=== PATIENT | female | born 1935 | race Caucasian/White ===

== ENCOUNTER 2017-04-06 11:55 | Emergency (ER) | payer OTHER ==
[~2017-04-06] VITALS: Ht 170.2 cm; Wt 75.0 kg
[~2017-04-06 11:55] MED LIST: AMLO5TAB22 PO; BISA10R; CHOL1CAP6 PO; COUM1TAB PO; FLEEENE3 RE; HYDR12.56 PO; MILKSUS5; NITR0.4S SL; OMEG600C2 PO; PERC10TA27 PO; RANI150 PO; STOO100C PO; SYNT100T PO; VALI10TA PO; VITA400C70 PO
[2017-04-06 11:59] VITALS: BP 121/73; PULSE 91; RESP 18; TEMP 97.7; O2SAT 98
--- NOTE | 2017-04-06 13:40 | PD ---
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 Symptoms started this morning while making breakfast. She reports tightness in the left side of her chest/back region which is constant, shortness of breath which is worse with exertion. Denies nausea or vomiting, fevers or chills, abdominal pain, cough or congestion, leg swelling. She reports that she has not been able to check her INR in 3 weeks, her INR outpatient order was and she was unable to get it checked yesterday. Primary care physician is Dr. Swenson, container filler is Dr. Jimenez. No other complaints. PFSH Past Medical History Hx Anticoagulant Therapy: Yes (COUMADIN) Heart Rhythm Problems: No Cancer: No Cardiac Catheterization: Yes Cardiovascular Problems: Yes (STENT ) High Cholesterol: No Congestive Heart Failure: No Cerebrovascular Accident: Yes Diabetes: No Endocrine: Yes Gastrointestinal Disorders: Yes (reflux occ esophageal spasms after eating drymeats etc) Genitourinary: Yes (hx of kidney infections) Hepatitis: No Hiatal Hernia: No Hypertension: Yes Immune Disorder: Yes (psoriasias) Musculoskeletal: Yes (back problems arthritis) Neurologic: No Psychiatric: No Reproductive: No Respiratory: Yes (BILATERAL PE) Thyroid Disease: Yes Menopausal: Yes Dilation and Curettage (D&C): Yes Past Surgical History AICD: No Body Medical Devices: cardiac stent Cardiac Surgery: Yes (cardiac stent placement) Coronary Artery Bypass Graft: No Coronary Stent: Yes Eye Surgery: Yes (francis cataract removal) Joint Replacement: No Oral Surgery: Yes (t and a) Pacemaker: No Tonsillectomy: Yes Social History Alcohol Use: No Tobacco Use: No Substance Use: No Allergies-Medications (Allergen,Severity, Reaction): Coded Allergies: Lisinopril (Unverified Allergy, Severe, Anaphylaxis, 07/02/14) Nitrofurantoin (Verified Allergy, Unknown, 04/06/17) Uncoded Allergies: PAPER TAPE (Allergy, Mild, REDNESS, BUMPS, 06/26/14) Reported Meds & Prescriptions Reported Meds & Active Scripts Active Valium (Diazepam) 10 Mg Tab 10 Mg PO HS PRN Amlodipine Besylate 5 Mg Tab 1 Tab PO DAILY hold if SBP<110 Reported Percocet 10/325 (Oxycodone/Acetaminophen) Oxycodone 10/325 Acetaminophen Tab 1 Tab PO Q4H Milk of Magnesia 400 mg/5Ml (Magnesium Hydroxide) 1 Diamond Diamond Fleet Enema (Sodium Phosphates) Lashonda 1 RE Dulcolax 10 Mg Supp (Bisacodyl) 10 Mg Supp 10 Mg .XX Coumadin 1 mg (Warfarin Sodium) Warfarin Sodium 1 mg Tab 1 Tab PO DAILY goal for INR 1.8-2.2; hold Coumadin for INR greater than 2.2; INR daily call Carmen GAYTAN or Ruby RN [phone] Colace (Docusate Sodium) 100 Mg Cap 100 Mg PO DAILY Fish Oil ([place]-3 Fatty Acids) 600 Mg Cap 600 Mg PO BID Hctz (Hydrochlorothiazide) 12.5 Mg Cap 12.5 Mg PO BID Synthroid (Levothyroxine Sodium) 100 Mcg Tab 100 Mcg PO DAILY Nitrostat (Nitroglycerin) 0.4 Mg Subl 0.4 Mg SL PRN 1 TAB SL EVERY 5 MINS X 3 PRN CHEST PAIN Vitamin D-3 (Cholecalciferol) 1,000 Unit Tab 3,000 Unit PO DAILY Vitamin E-400 (Vitamin E) 400 Unit Cap 400 Unit PO DAILY Zantac 150 Mg Tab (Ranitidine HCl) 150 Mg Tab 150 Mg PO BID Review of Systems Except as stated in HPI: all other systems reviewed are Neg Physical Exam Narrative GENERAL: Well-developed well-nourished female in no acute distress SKIN: Warm and dry. HEAD: Atraumatic. Normocephalic. EYES: Pupils equal and round. No scleral icterus. No injection or drainage. ENT: No nasal bleeding or discharge. Mucous membranes pink and moist. NECK: Trachea midline. No JVD. CARDIOVASCULAR: Regular rate and rhythm. No murmur appreciated. RESPIRATORY: No accessory muscle use. Clear to auscultation. Breath sounds equal bilaterally. GASTROINTESTINAL: Abdomen soft, non-tender, nondistended. Hepatic and splenic margins not palpable. MUSCULOSKELETAL: No obvious deformities. No edema. NEUROLOGICAL: Awake and alert. No obvious cranial nerve deficits. Motor grossly within normal limits. Normal speech. PSYCHIATRIC: Appropriate mood and affect; insight and judgment normal. Data Data Last Documented VS Vital Signs Date Time Temp Pulse Resp B/P Pulse Ox O2 Delivery O2 Flow Rate FiO2 04/06/17 15:45 Room Air 04/06/17 11:59 97.7 91 18 121/73 98 Orders Electrocardiogram (04/06/17 13:37) Basic Metabolic Panel (Bmp) (04/06/17 13:37) Ckmb (Isoenzyme) Profile (04/06/17 13:37) Complete Blood Count With Diff (04/06/17 13:37) Magnesium (Mg) (04/06/17 13:37) Prothrombin Time / Inr (Pt) (04/06/17 13:37) Act Partial Throm Time (Ptt) (04/06/17 13:37) Troponin I (04/06/17 13:37) Chest, Single Ap (04/06/17 13:37) Ecg Monitoring (04/06/17 13:37) Bilateral Bp Monitoring (04/06/17 13:37) Iv Access Insert/Monitor (04/06/17 13:37) Oximetry (04/06/17 13:37) Oxygen Administration (04/06/17 13:37) Sodium Chloride 0.9% Flush (Ns Flush) (04/06/17 13:45) Ct Pulmonary Angiogram (04/06/17 13:37) Potassium Chloride (Kcl) (04/06/17 15:15) Iohexol 350 Inj (Omnipaque 350 Inj) (04/06/17 16:37) Labs Laboratory Tests Test 04/06/17 14:05 White Blood Count 7.8 TH/MM3 Red Blood Count 5.91 MIL/MM3 Hemoglobin 16.3 GM/DL Hematocrit 49.2 % Mean Corpuscular Volume 83.2 FL Mean Corpuscular Hemoglobin 27.6 PG Mean Corpuscular Hemoglobin 33.2 % Concent Red Cell Distribution Width 16.3 % Platelet Count 251 TH/MM3 Mean Platelet Volume 7.5 FL Neutrophils (%) (Auto) 57.7 % Lymphocytes (%) (Auto) 30.7 % Monocytes (%) (Auto) 8.7 % Eosinophils (%) (Auto) 2.3 % Basophils (%) (Auto) 0.6 % Neutrophils # (Auto) 4.5 TH/MM3 Lymphocytes # (Auto) 2.4 TH/MM3 Monocytes # (Auto) 0.7 TH/MM3 Eosinophils # (Auto) 0.2 TH/MM3 Basophils # (Auto) 0.0 TH/MM3 CBC Comment DIFF FINAL Differential Comment Prothrombin Time 23.4 SEC Prothromb Time International 2.1 RATIO Ratio Activated Partial 34.9 SEC Thromboplast Time Sodium Level 140 MEQ/L Potassium Level 3.4 MEQ/L Chloride Level 104 MEQ/L Carbon Dioxide Level 30.6 MEQ/L Anion Gap 5 MEQ/L Blood Urea Nitrogen 17 MG/DL Creatinine 1.07 MG/DL Estimat Glomerular Filtration 49 ML/MIN Rate Random Glucose 96 MG/DL Calcium Level 9.2 MG/DL Magnesium Level 2.2 MG/DL Total Creatine Kinase 43 U/L Troponin I LESS THAN 0.02 NG/ML MDM Medical Decision Making Medical Screen Exam Complete: Yes Emergency Medical Condition: Yes Medical Record Reviewed: Yes Interpretation(s) CBC hemoglobin 16.3 INR 2.1 Differential Diagnosis Costochondritis, pneumonia, pneumothorax, PE, ACS Narrative Course 81-year-old female has been experiencing left-sided chest tightness, shortness of breath since this morning. History of bilateral PEs, coronary artery disease , polycythemia. Plan is for basic lab work, chest x-ray, EKG and ECG monitoring , pulse oximetry, CT pulmonary angiogram. CT pulmonary angiogram reveals CONCLUSION: 1. Findings consistent with sequela of prior pulmonary embolism to the lower lobe segmental pulmonary artery branches, more prominently on the left. See above. 2. No evidence for acute pulmonary embolism to the subsegmental level. 3. Apparent left ventricle hypertrophy with ground glass opacities in the mid to lower lobes and interstitial prominence consistent with the positive fluid balance. 4. Moderate coronary artery calcifications. No acute pulmonary embolism is observed. Her INR is therapeutic at 2.1. Her initial EKG is nonischemic and her initial cardiac enzymes are negative. I did discuss with the patient the option of staying in our chest pain center for serial cardiac enzymes, ECG monitoring and cardiology evaluation in the morning , possibly stress testing in the morning however the patient is declining. She would prefer to follow up with her container filler Dr. Jimenez and plans a new this week. She has no chest pain or shortness of breath upon reexamination and this appears to be a reasonable plan. She does understand that she can return here for any acutely new or worsening symptoms. She is stable for discharge. Discussed with my attending who agrees with plan of care. Diagnosis Primary Impression: Chest pain Qualified Code: R07.9 - Chest pain, unspecified type Referrals: Chad Jimenez MD Additional Instructions: As discussed, follow-up with your container filler in the next 2-3 days. Continue taking your medications as prescribed. Return for any acutely new or worsening symptoms. Med/Other Pt SpecificInfo: No Change to Meds Disposition: 01 DISCHARGE HOME Condition: Stable [place] Apr 06, 2017 13:40
[2017-04-06] MEDS ORDERED: SODIUM CHLORIDE 0.9% FLUSH 10 ML FLUSH IVF PRN (13:45)
--- NOTE | 2017-04-06 14:20 | RADRPT ---
EXAM DATE/TIME: 04/06/2017 13:49 [facility] COMPARISON: CHEST SINGLE AP, February 28, 2014, 14:51. INDICATIONS : Chest pain. MEDICAL HISTORY : None. SURGICAL HISTORY : None. ENCOUNTER: Initial ACUITY: 1 day PAIN SCORE: 6/10 LOCATION: Left upper chest FINDINGS: Diffuse interstitial prominence similar to previous exam. Linear parenchymal opacities in the left vazquez ng base likely reflect atelectasis/scarring. Cardiomediastinal contours are stable. Bony thorax is in tact. CONCLUSION: 1. Minimal left lower lobe atelectasis versus scarring. 2. No acute abnormality or significant interval change. Sabino Cedeño MD on April 06, 2017 at 14:17 Board Certified Radiologist. This report was verified electronically.
[2017-04-06 14:44] LABS: AUTOMATED NEUTROPHIL # 4.5 TH/MM3 (1.8-7.7); BASOPHIL % 0.6 % (0.0-2.0); EOSINOPHIL # 0.2 TH/MM3 (0-0.4); EOSINOPHIL % 2.3 % (0.0-4.0); HEMATOCRIT 49.2 % (35.0-46.0); HEMO FLAGS DIFF FINAL; LYMPH % 30.7 % (9.0-44.0); LYMPHOCYTE # 2.4 TH/MM3 (1.0-4.8); MEAN CELL VOLUME 83.2 FL (80.0-100.0); MEAN CORPUSCULAR HEMOGLOBIN 27.6 PG (27.0-34.0); MEAN CORPUSCULAR HGB CONC 33.2 % (32.0-36.0); MONO % 8.7 % (0.0-8.0); NEUT % 57.7 % (16.0-70.0); PLATELET COUNT 251 TH/MM3 (150-450); RED BLOOD COUNT 5.91 MIL/MM3 (4.00-5.30); RED CELL DISTRIBUTION WIDTH 16.3 % (11.6-17.2); WHITE BLOOD COUNT 7.8 TH/MM3 (4.0-11.0)
[2017-04-06 14:53] LABS: APTT (PATIENT) 34.9 SEC (24.3-30.1); INTERNATIONAL NORMALIZED RATIO 2.1 RATIO; PROTHROMBIN TIME - PATIENT 23.4 SEC (9.8-11.6)
[2017-04-06 15:10] LABS: ANION GAP 5 MEQ/L (5-15); BICARBONATE 30.6 MEQ/L (21.0-32.0); BLOOD UREA NITROGEN 17 MG/DL (7-18); CHLORIDE 104 MEQ/L (98-107); CREATINE KINASE 43 U/L (26-192); GLOMERULAR FILTRATION RATE 49 ML/MIN (>89); MAGNESIUM 2.2 MG/DL (1.5-2.5); POTASSIUM 3.4 MEQ/L (3.5-5.1); SODIUM (NA) 140 MEQ/L (136-145)
[2017-04-06] MEDS ORDERED: POTASSIUM CHLORIDE 20 MEQ CONTROLLED RELEASE TAB PO ONE (15:15)
[2017-04-06] MEDS ORDERED: IOHEXOL 350 MG/ML 10 ML VIAL (for RAD DIAG) IV ONE (16:37)
--- NOTE | 2017-04-06 16:56 | EKG ---
Date Performed: 04/06/2017 Time Performed: 13:49:42 PTAGE: 81 years EKG: Sinus rhythm WITH FIRST DEGREE AV BLOCK POSSIBLE INFERIOR MYOCARDIAL INFARCTION ABNORMAL ECG PREVIOUS TRACING : 07/02/2014 04.14 No significant change from previous tracing noted. DOCTOR: Chad Jimenez Interpretating Date/Time 04/06/2017 16:52:48
--- NOTE | 2017-04-06 17:05 | RADRPT ---
EXAM DATE/TIME: 04/06/2017 16:29 [facility] COMPARISON: CT PULMONARY ANGIOGRAM, July 02, 2014, 5:40. INDICATIONS : Shortness of breath. IV CONTRAST: 75 cc Omnipaque 350 (iohexol) IV RADIATION DOSE: 20.22 CTDIvol (mGy) MEDICAL HISTORY : Cardiovascular disease. Hypertension. Pulmonary emboli. SURGICAL HISTORY : None. ENCOUNTER: Initial ACUITY: 1 day PAIN SCALE: 0/10 LOCATION: Bilateral chest TECHNIQUE: Volumetric scanning of the chest was performed using a pulmonary embolism protocol MIP images were reconstructed. Using automated exposure control and adjustment of the mA and/or kV acco rding to patient size, radiation dose was kept as low as reasonably achievable to obtain optimal diag nostic quality images. FINDINGS: PULMONARY ARTERIES: The pulmonary arteries are visualized to the proximal subsegmental level. There a re multiple thin linear defects involving primarily the left lower lobe segmental pulmonary artery br anches although a subtle defect is also seen in a posterior right lower lobe segmental branch consist ent with non-flow limiting webs from prior pulmonary emboli. No focal filling defects are noted in th e pulmonary arteries to suggest acute pulmonary embolism. The main pulmonary artery is normal in ashley mal[place]. LUNGS: Diffuse intralobular septal thickening and patchy mild ground glass opacities in the in th e mid to lower lungs are. PLEURAE: There is no pleural thickening or pleural effusion. MEDIASTINUM: Subcentimeter mediastinal nodes do not meet CT size criteria. There is prominence of the left ventricular wall. Dense coronary artery calcifications are noted. No significant pericardia l effusion. MUSCULOSKELETAL: Within normal limits for patient age. MISCELLANEOUS: The visualized upper abdominal organs demonstrate no acute abnormality. CONCLUSION: 1. Findings consistent with sequela of prior pulmonary embolism to the lower lobe segmental pulmonary artery branches, more prominently on the left. See above. 2. No evidence for acute pulmonary embolism to the subsegmental level. 3. Apparent left ventricle hypertrophy with ground glass opacities in the mid to lower lobes and inte rstitial prominence consistent with the positive fluid balance. 4. Moderate coronary artery calcifications. Sabino Cedeño MD on April 06, 2017 at 16:42 Board Certified Radiologist. This report was verified electronically.
[2017-04-06 17:23] VITALS: BP 150/76; PULSE 70; RESP 19; O2SAT 95
== END 2017-04-06 18:29 | disposition home or self-care (01) ==
LOC: NEPE 11:55
DX: R07.9 Chest pain, unspecified (principal); R06.02 Shortness of breath; R94.31 Abnormal electrocardiogram [ECG] [EKG]; I10 Essential (primary) hypertension; E07.9 Disorder of thyroid, unspecified; Z79.01 Long term (current) use of anticoagulants; Z86.711 Personal history of pulmonary embolism; Z86.79 Personal history of other diseases of the circulatory system; Z87.19 Personal history of other diseases of the digestive system; Z87.448 Personal history of other diseases of urinary system; Z87.39 Personal history of other diseases of the musculoskeletal system and connective tissue; Z86.2 Personal history of diseases of the blood and blood-forming organs and certain disorders involving the immune mechanism
CPT/HCPCS: 71010; 71275; 80048; 82550; 83735; 84484; 85025; 85610; 85730; 93005; 99285; Q9967